=== PATIENT | male | born 1970 | race Caucasian/White ===

== ENCOUNTER 2017-04-10 04:04 | Emergency (ER) | payer BC ==
--- NOTE | 2017-04-10 04:15 | EDM.PDOC ---
ED HPI GENERAL MEDICAL PROBLEM - General Chief Complaint: Respiratory Problem Stated Complaint: CONGESTION COUGH PAIN IN LUNGS Time Seen by Provider: 04/10/17 04:20 Source of Information: Reports: Patient History Limitations: Reports: No Limitations - History of Present Illness INITIAL COMMENTS - FREE TEXT/NARRATIVE: The patient presents with fever, chills, cough, diarrhea and vomiting. This started about 5 days ago. He has a history of inhalation lung injury and he will get pneumonia easily. He will get it about every 2 years. He has no chest pain. He does have some shortness of breath. He does not smoke. Onset: Gradual Duration: Day(s): (5) Severity: Moderate Improves with: Reports: None Worsens with: Reports: None Associated Symptoms: Reports: Cough, Fever/Chills, Shortness of Breath. Denies : Headaches, Nausea/Vomiting Chest Pain Score (Numeric/FACES): 4 - Related Data Allergies Allergy/AdvReac Type Severity Reaction Status Date / Time codeine Allergy Anaphylactic Verified 04/10/17 04:15 Shock Home Meds: Home Meds Albuterol [Proventil HFA] 2 puff INH Q4H PRN #1 inhaler 04/10/17 [Rx] Azithromycin [IJD: Azithromycin] 250 mg PO DAILY #6 tab 04/10/17 [Rx] Benzonatate [Tessalon Perle] 100 mg PO TID PRN #30 capsule 04/10/17 [Rx] Testosterone Cypionate 100 mg IM ASDIRECTED 04/10/17 [History] amLODIPine Besylate [Amlodipine Besylate] 10 mg PO DAILY 04/10/17 [History] ED ROS GENERAL - Review of Systems Review Of Systems: See Below Constitutional: Reports: Fever, Chills HEENT: Reports: No Symptoms Respiratory: Reports: Shortness of Breath, Cough Cardiovascular: Reports: No Symptoms Endocrine: Reports: No Symptoms GI/Abdominal: Reports: Diarrhea, Vomiting. Denies: Abdominal Pain : Reports: No Symptoms Musculoskeletal: Reports: No Symptoms ED EXAM, GENERAL - Physical Exam Exam: See Below Exam Limited By: No Limitations General Appearance: Alert, No Apparent Distress Ears: Normal External Exam Nose: Normal Inspection Head: Atraumatic, Normocephalic Neck: Normal Inspection Respiratory/Chest: No Respiratory Distress, Decreased Breath Sounds, Wheezing ( Mild) Cardiovascular: Regular Rate, Rhythm, No Edema, No Murmur GI/Abdominal: Soft, Non-Tender, No Organomegaly, No Mass Back Exam: Normal Inspection Extremities: Normal Inspection Course - Vital Signs Last Recorded V/S: Last Vital Signs Temp 96.7 F 04/10/17 04:10 Pulse 118 H 04/10/17 04:10 Resp 16 04/10/17 04:10 BP 143/124 H 04/10/17 04:10 Pulse Ox 99 04/10/17 04:29 - Orders/Labs/Meds Orders: Active Orders 24 hr Category Date Time Status RT Aerosol Therapy [RC] ASDIRECTED Care 04/10/17 04:20 Active CXR [Chest 2V] [CR] Stat Exams 04/10/17 04:20 Taken Meds: Medications Discontinued Medications Generic Name Dose Route Start Last Admin Trade Name Freq PRN Reason Stop Dose Admin Albuterol/Ipratropium 3 ml 04/10/17 04:20 04/10/17 04:29 Duoneb 3.0-0.5 Mg/3 Ml NEB 04/10/17 04:21 3 ml ONETIME ONE Administration - Re-Assessments/Exams Free Text/Narrative Re-Assessment/Exam: 04/10/17 04:24 I will check him for influenza and get a CXR. I will also get him a duoneb. 04/10/17 05:01 His CXR looks good. His influenza is negative. I will get him on a z-ganesh, albuterol and some tessilon pearls. Departure - Departure Time of Disposition: 05:05 Disposition: Home, Self-Care 01 Condition: Good Clinical Impression: Bronchitis - Discharge Information Prescriptions: Albuterol [Proventil HFA] 2 puff INH Q4H PRN #1 inhaler PRN Reason: Shortness Of Breath Azithromycin [IJD: Azithromycin] 250 mg PO DAILY #6 tab Benzonatate [Tessalon Perle] 100 mg PO TID PRN #30 capsule PRN Reason: Cough Referrals: PCP,Not In Area [Primary Care Provider] - Forms: ED Department Discharge Additional Instructions: Take the zithromax 2 pills on day 1 and 1 pill on day 2 through 5. Use the albuterol 2 puffs every 6 hours as needed for shortness of breath. Use the tessalon pearls 1 every 8 hours as needed for cough. You may also try some robittusin. - My Orders Last 24 Hours: My Active Orders 04/10/17 04:20 RT Aerosol Therapy [RC] ASDIRECTED CXR [Chest 2V] [CR] Stat - Assessment/Plan Last 24 Hours: My Active Orders 04/10/17 04:20 RT Aerosol Therapy [RC] ASDIRECTED CXR [Chest 2V] [CR] Stat
[2017-04-10] MEDS ORDERED: Albuterol/Ipratropium 3.0-0.5 MG/3 ML Neb Soln NEB ONE (04:20)
[2017-04-10] MEDS ORDERED: Albuterol 6.7 GM Inhaler INH ONE (05:08)
--- NOTE | 2017-04-10 06:53 | CR ---
Chest: Two views of the chest were obtained. Comparison: No prior study. Heart size and mediastinum are normal. Slight increased perihilar markings are seen possibly due to mild bronchitis. No pneumonia is identified. Minimal atelectasis is seen within the lingula. Bony structures appear within normal limits for the patient's age. Impression: 1. Possible bronchitis with mild lingular atelectasis. 2. No pneumonia is seen. Diagnostic code #3
== END 2017-04-10 05:23 | disposition home or self-care (01) ==
LOC: JD.ED 04:04
DX: J40 Bronchitis, not specified as acute or chronic (principal); Z88.5 Allergy status to narcotic agent; Z79.899 Other long term (current) drug therapy
CPT/HCPCS: 71046; 87804; 94640; 94664; 99284; A9270; 99283

== ENCOUNTER 2018-05-07 10:18 | Emergency (ER) | payer BC ==
[2018-05-07] MEDS ORDERED: HYDROmorphone 1 MG/ML Syringe IVPUSH ONE ×2 (10:56→13:44)
[2018-05-07] MEDS ORDERED: Albuterol 0.083% 2.5 MG/3 ML Neb Soln NEB ONE (10:56)
[2018-05-07] MEDS ORDERED: Sodium Chloride 0.9% 10 ML Syringe FLUSH PRN (10:56)
[2018-05-07] MEDS ORDERED: Sodium Chloride 0.9% 1,000 ML IV SCH ×2 (11:00→12:15)
--- NOTE | 2018-05-07 11:50 | EDM.PDOC ---
ED HPI GENERAL MEDICAL PROBLEM - General Chief Complaint: Respiratory Problem Stated Complaint: BACK PAIN Time Seen by Provider: 05/07/18 10:39 Source of Information: Reports: Patient, RN Notes Reviewed - History of Present Illness INITIAL COMMENTS - FREE TEXT/NARRATIVE: 47-year-old male is come in by private vehicle with complaint of cough, chills, fever, severe left-sided chest pain worse with any kind of motion and coughing. He states he became ill about a week ago with cough fever chills headache muscle aching. He was seen by provider at [place] last week, he and his family all tested positive for influenza. He then was seen again on Saturday 2 days ago her continued cough, left chest pain, diagnosed with "pneumonia" He states he was given what sounds like Rocephin IM and started on Zithromax with his first dose yesterday morning. He started having mild discomfort of his left lower anterior chest through 4 days ago but became much worse Saturday evening after his evaluation. Since that time there has been severe pain with coughing, deep breathing and motion primarily left lower rib cage area. The pain in his left low chest this morning is severe, also worse with motion. He has no known history for heart disease or known other pulmonary problems. Treatments [facility]ISS[facility] STEWARD: Reports: NSAIDS Left Abdomen Pain Score (Numeric/FACES): 10 - Related Data Allergies Allergy/AdvReac Type Severity Reaction Status Date / Time codeine Allergy Anaphylactic Verified 05/07/18 10:41 Shock Home Meds: Home Meds Albuterol [Proventil HFA] 2 puff INH Q4H PRN #1 inhaler 04/10/17 [Rx] Azithromycin [IJD: Azithromycin] 250 mg PO DAILY #6 tab 04/10/17 [Rx] Testosterone Cypionate 100 mg IM ASDIRECTED 04/10/17 [History] Benzonatate 100 mg PO TID PRN 05/07/18 [History] Dextromethorphan/guaiFENesin [Mucinex DM ER 600-30 MG] 1 tab PO BID 05/07/18 [ History] Losartan/Hydrochlorothiazide [Losartan-HCTZ 100-25 MG] 1 each PO DAILY 05/07/18 [History] predniSONE [Deltasone] 20 mg PO BID 05/07/18 [History] Past Medical History Cardiovascular History: Reports: Hypertension Respiratory History: Reports: Sleep Apnea, Other (See Below) Other Respiratory History: inhalation alvarez Gastrointestinal History: Reports: None Genitourinary History: Reports: None Musculoskeletal History: Reports: None Neurological History: Reports: None Psychiatric History: Reports: None Endocrine/Metabolic History: Reports: Other (See Below) Other Endocrine/Metabolic History: 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 Hematologic History: Reports: None Immunologic History: Reports: None Oncologic (Cancer) History: Reports: None Dermatologic History: Reports: None - Infectious Disease History Infectious Disease History: Reports: Influenza - Past Surgical History Head Surgeries/Procedures: Reports: None GI Surgical History: Reports: None Male Surgical History: Reports: None Oncologic Surgical History: Reports: None Social & Family History - Family History Family Medical History: Noncontributory - Tobacco Use Smoking Status *Q: Never Smoker - Caffeine Use Caffeine Use: Reports: Coffee - Recreational Drug Use Recreational Drug Use: Yes Drug Use in Last 12 Months: No Recreational Drug Type: Reports: Marijuana/Hashish ED ROS GENERAL - Review of Systems Review Of Systems: See Below Constitutional: Reports: Fever, Chills HEENT: Reports: Rhinitis. Denies: Throat Pain Respiratory: Reports: Shortness of Breath, Pleuritic Chest Pain, Cough, Sputum Cardiovascular: Reports: Chest Pain (Scant with coughing, deep breathing and motion), Dyspnea on Exertion, Lightheadedness GI/Abdominal: Denies: Abdominal Pain, Nausea, Vomiting Musculoskeletal: Reports: Back Pain (Left back), Other (Generalized muscle achiness) Skin: Denies: Rash Neurological: Reports: Dizziness, Headache ED EXAM, GENERAL - Physical Exam Exam: See Below General Appearance: Alert, Moderate Distress Throat/Mouth: Normal Inspection Head: Atraumatic. No: Facial Swelling Neck: Normal Inspection Respiratory/Chest: Respiratory Distress, Other (Addy left lower anterior chest ). No: Rhonchi (Maura tachypnea), Wheezing Cardiovascular: Tachycardia GI/Abdominal: Soft, Non-Tender Back Exam: CVA Tenderness (L) (Mild). No: CVA Tenderness (R) Extremities: No: Pedal Edema, Leg Pain, Increased Warmth, Redness Neurological: Alert, Oriented, No Motor/Sensory Deficits Skin Exam: Warm, Dry, Diaphoretic (Mild at time of initial exam) Course - Vital Signs Last Recorded V/S: Last Vital Signs Temp 97.5 F 05/07/18 12:17 Pulse 110 H 05/07/18 12:17 Resp 16 05/07/18 12:17 BP 162/76 H 05/07/18 12:17 Pulse Ox 94 L 05/07/18 12:17 - Orders/Labs/Meds Orders: Active Orders 24 hr Category Date Time Status Peripheral IV Care [RC] . DIRECTED Care 05/07/18 10:56 Active RT Aerosol Therapy [RC] ASDIRECTED Care 05/07/18 10:56 Active CULTURE BLOOD [BC] Stat Lab 05/07/18 11:06 Received CULTURE BLOOD [BC] Stat Lab 05/07/18 11:15 Received Peripheral IV Insertion Adult [OM.PC] Stat Oth 05/07/18 10:55 Ordered Labs: Laboratory Tests 05/07/18 05/07/18 05/07/18 Range/Units 10:30 10:30 10:30 WBC 16.95 H (4.23-9.07) K/mm3 RBC 6.17 H (4.63-6.08) M/mm3 Hgb 18.6 H (13.7-17.5) gm/L Hct 56.5 H (40.1-51.0) % MCV 91.6 (79.0-92.2) fl MCH 30.1 (25.7-32.2) pg MCHC 32.9 (32.2-35.5) g/dl RDW Std Deviation 53.7 H (35.1-43.9) fL Plt Count 261 (163-337) K/mm3 MPV 10.5 (9.4-12.3) fl Neutrophils % (Manual) 83 H (40-60) % Band Neutrophils % 0 (0-10) % Lymphocytes % (Manual) 11 L (20-40) % Atypical Lymphs % 0 % Monocytes % (Manual) 5 (2-10) % Eosinophils % (Manual) 1 (0.8-7.0) % Basophils % (Manual) 0 L (0.2-1.2) Platelet Estimate Adequate RBC Morph Comment Normal D-Dimer, Quantitative (0.19-0.50) mg/L Sodium 134 L (136-145) mEq/L Potassium 3.9 (3.5-5.1) mEq/L Chloride 99 (98-107) mEq/L Carbon Dioxide 21 (21-32) mEq/L Anion Gap 17.9 H (5-15) BUN 22 H (7-18) mg/dL Creatinine 1.5 H (0.7-1.3) mg/dL Est Cr Clr Drug Dosing 75.34 mL/min Estimated GFR (MDRD) 51 (>60) mL/min BUN/Creatinine Ratio 14.7 (14-18) Glucose 135 H (74-106) mg/dL Lactic Acid (0.4-2.0) mmol/L Calcium 9.0 (8.5-10.1) mg/dL Total Bilirubin 0.9 (0.2-1.0) mg/dL AST 32 (15-37) U/L ALT 24 (16-63) U/L Alkaline Phosphatase 74 (46-116) U/L C-Reactive Protein 0.5 (<1.0) mg/dL Total Protein 8.1 (6.4-8.2) g/dl Albumin 4.2 (3.4-5.0) g/dl Globulin 3.9 gm/dL Albumin/Globulin Ratio 1.1 (1-2) 05/07/18 05/07/18 Range/Units 10:30 11:15 WBC (4.23-9.07) K/mm3 RBC (4.63-6.08) M/mm3 Hgb (13.7-17.5) gm/L Hct (40.1-51.0) % MCV (79.0-92.2) fl MCH (25.7-32.2) pg MCHC (32.2-35.5) g/dl RDW Std Deviation (35.1-43.9) fL Plt Count (163-337) K/mm3 MPV (9.4-12.3) fl Neutrophils % (Manual) (40-60) % Band Neutrophils % (0-10) % Lymphocytes % (Manual) (20-40) % Atypical Lymphs % % Monocytes % (Manual) (2-10) % Eosinophils % (Manual) (0.8-7.0) % Basophils % (Manual) (0.2-1.2) Platelet Estimate RBC Morph Comment D-Dimer, Quantitative 0.50 (0.19-0.50) mg/L Sodium (136-145) mEq/L Potassium (3.5-5.1) mEq/L Chloride (98-107) mEq/L Carbon Dioxide (21-32) mEq/L Anion Gap (5-15) BUN (7-18) mg/dL Creatinine (0.7-1.3) mg/dL Est Cr Clr Drug Dosing mL/min Estimated GFR (MDRD) (>60) mL/min BUN/Creatinine Ratio (14-18) Glucose (74-106) mg/dL Lactic Acid 3.1 H (0.4-2.0) mmol/L Calcium (8.5-10.1) mg/dL Total Bilirubin (0.2-1.0) mg/dL AST (15-37) U/L ALT (16-63) U/L Alkaline Phosphatase (46-116) U/L C-Reactive Protein (<1.0) mg/dL Total Protein (6.4-8.2) g/dl Albumin (3.4-5.0) g/dl Globulin gm/dL Albumin/Globulin Ratio (1-2) Meds: Medications Discontinued Medications Generic Name Dose Route Start Last Admin Trade Name Freq PRN Reason Stop Dose Admin Albuterol 2.5 mg 05/07/18 10:56 05/07/18 11:09 Proventil Neb Soln NEB 05/07/18 10:57 2.5 mg ONETIME ONE Administration Hydromorphone HCl 1 mg 05/07/18 10:56 05/07/18 11:02 Dilaudid IVPUSH 05/07/18 10:57 1 mg ONETIME ONE Administration Hydromorphone HCl 1 mg 05/07/18 13:44 05/07/18 14:33 Dilaudid IVPUSH 05/07/18 13:45 1 mg ONETIME ONE Administration Sodium Chloride 1,000 mls @ 999 mls/hr 05/07/18 11:00 05/07/18 11:04 Normal Saline IV 999 mls/hr ONETIME SHEYLA Administration Sodium Chloride 1,000 mls @ 999 mls/hr 05/07/18 12:15 05/07/18 12:13 Normal Saline IV 999 mls/hr ONETIME SHEYLA Administration Lorazepam 1 mg 05/07/18 13:44 05/07/18 14:33 Ativan PO 05/07/18 13:45 1 mg ONETIME ONE Administration Sodium Chloride 10 ml 05/07/18 10:56 05/07/18 11:04 Saline Flush FLUSH 10 ml ASDIRECTED PRN Administration Keep Vein Open Departure - Departure Time of Disposition: 14:55 Disposition: Home, Self-Care 01 Condition: Fair Clinical Impression: Atypical chest pain, Chest wall pain - Discharge Information Instructions: Chest Wall Pain, [id number], Nonspecific Chest Pain, Easy-to- Read Referrals: PCP,Not In Area [Primary Care Provider] - Forms: ED Department Discharge Additional Instructions: Rest, no heavy lifting, you may alternate ice and heat to area of pain for symptomatic relief, Advil or ibuprofen 800 mg up to 3 times daily for pain and inflammation, take Tylenol in between doses for mild discomfort as needed or Percocet 3-4 times daily if needed for severe pain. Do not drive or work when taking Percocet. You may also take Ativan especially at bedtime if needed for muscle relaxation to help you rest and sleep. Follow up at our [facility] medical clinic this coming Saturday 2 days from now for recheck, call [phone] to see one of our providers. Return to ED as needed if symptoms worsening in any way. - My Orders Last 24 Hours: My Active Orders 05/07/18 10:55 Peripheral IV Insertion Adult [OM.PC] Stat 05/07/18 10:56 Peripheral IV Care [RC] . DIRECTED RT Aerosol Therapy [RC] ASDIRECTED 05/07/18 11:06 CULTURE BLOOD [BC] Stat 05/07/18 11:15 CULTURE BLOOD [BC] Stat - Assessment/Plan Last 24 Hours: My Active Orders 05/07/18 10:55 Peripheral IV Insertion Adult [OM.PC] Stat 05/07/18 10:56 Peripheral IV Care [RC] . DIRECTED RT Aerosol Therapy [RC] ASDIRECTED 05/07/18 11:06 CULTURE BLOOD [BC] Stat 05/07/18 11:15 CULTURE BLOOD [BC] Stat
--- NOTE | 2018-05-07 11:52 | CR ---
Chest: Portable view of the chest was obtained. Comparison: Prior chest x-ray of 04/10/17. Heart size and mediastinum are within normal limits for portable technique. Lungs are clear with no acute parenchymal change. Bony structures are grossly intact. Impression: 1. Nothing acute is seen on portable chest x-ray. Diagnostic code #1
[2018-05-07] MEDS ORDERED: LORazepam 1 MG Tab PO ONE (13:44)
== END 2018-05-07 15:29 | disposition home or self-care (01) ==
LOC: JD.ED 10:18
DX: R07.89 Other chest pain (principal); I10 Essential (primary) hypertension; Z79.899 Other long term (current) drug therapy; Z88.5 Allergy status to narcotic agent
CPT/HCPCS: 36415; 71045; 80053; 83605; 85007; 85027; 85379; 86140; 87040; 94640; 96361; 96374; 96376; 99284; A9270; J1170; J7040

== ENCOUNTER 2018-12-02 17:59 | Emergency (ER) | payer BC ==
[2018-12-02] MEDS ORDERED: HYDROmorphone 1 MG/ML Syringe IVPUSH ONE ×3 (18:13→21:15)
[2018-12-02] MEDS ORDERED: Sodium Chloride 0.9% 10 ML Syringe FLUSH PRN (18:13)
[2018-12-02] MEDS ORDERED: Sodium Chloride 0.9% 1,000 ML IV SCH (18:15)
[2018-12-02] MEDS ORDERED: Sodium Chloride 0.9% 10 ML Syringe FLUSH ONE (18:41)
[2018-12-02] MEDS ORDERED: Iopamidol 612 MG/ML 100 ML Bottle IVPUSH ONE (18:41)
--- NOTE | 2018-12-02 18:48 | EDM.PDOC ---
ED HPI GENERAL MEDICAL PROBLEM - General Chief Complaint: Trauma Stated Complaint: FALL Time Seen by Provider: 12/02/18 18:03 Source of Information: Reports: Patient, RN Notes Reviewed - History of Present Illness INITIAL COMMENTS - FREE TEXT/NARRATIVE: 48 year old male fell, tripped on a curb, has come in per private vehicle with severe low and mid back pain and also L chest wall and upper abd pain. He has hx of large L abd wall hernia. He denies hitting his head, head or neck pain. He is having a lot of pain mid back and also L chest and L upper abd, worse with motion. Hx of large L abd wall hernia. Right Chest Pain Score (Numeric/FACES): 10 - Related Data Allergies Allergy/AdvReac Type Severity Reaction Status Date / Time codeine Allergy Anaphylactic Verified 12/02/18 18:09 Shock Home Meds: Home Meds Testosterone Cypionate 100 mg IM ASDIRECTED 04/10/17 [History] Citalopram [Citalopram HBr] 20 mg PO DAILY 12/02/18 [History] Past Medical History Cardiovascular History: Reports: Blood Clots/VTE/DVT, Hypertension Respiratory History: Reports: Asthma, Sleep Apnea, Other (See Below) Other Respiratory History: inhalation alvarez Gastrointestinal History: Reports: None Genitourinary History: Reports: None Musculoskeletal History: Reports: Other (See Below) Other Musculoskeletal History: left rib pain/surgery Neurological History: Reports: None Psychiatric History: Reports: Depression Endocrine/Metabolic History: Reports: Other (See Below) Other Endocrine/Metabolic History: 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 Hematologic History: Reports: None Immunologic History: Reports: None Oncologic (Cancer) History: Reports: None Dermatologic History: Reports: None - Infectious Disease History Infectious Disease History: Reports: Influenza - Past Surgical History Head Surgeries/Procedures: Reports: None GI Surgical History: Reports: None, Hernia, Abdominal Male Surgical History: Reports: None Oncologic Surgical History: Reports: None Social & Family History - Family History Family Medical History: Noncontributory - Tobacco Use Smoking Status *Q: Current Every Day Smoker Years of Tobacco use: 20 Packs/Tins Daily: 1 - Caffeine Use Caffeine Use: Reports: Coffee, Energy Drinks, Soda - Recreational Drug Use Recreational Drug Use: No Review of Systems - Review of Systems Review Of Systems: See Below Constitutional: Reports: No Symptoms Eyes: Reports: No Symptoms Ears: Reports: No Symptoms Nose: Reports: No Symptoms Mouth/Throat: Reports: No Symptoms Respiratory: Reports: Shortness of Breath, Pleuritic Chest Pain Cardiovascular: Reports: Chest Pain (L chest wall) GI/Abdominal: Reports: Abdominal Pain (L upper abd) Musculoskeletal: Reports: Back Pain (mid back, worse with motion). Denies: Neck Pain, Shoulder Pain, Arm Pain Skin: Reports: No Symptoms Neurological: Denies: Headache, Trouble Speaking, Weakness ED EXAM, GENERAL - Physical Exam Exam: See Below General Appearance: Alert, Anxious, Moderate Distress, Obese (186 kg, BMI 51) Eye Exam: Bilateral Eye: PERRL Ears: Normal External Exam Nose: Normal Inspection Throat/Mouth: Normal Inspection Head: Atraumatic. No: Facial Swelling, Facial Tenderness Neck: Supple, Non-Tender Respiratory/Chest: Normal Breath Sounds, Respiratory Distress (mild tachypnea). No: Rhonchi, Wheezing Cardiovascular: Tachycardia GI/Abdominal: Distended (large L upper abd wall herniation, tender L upper and L mid abd). No: Guarding, Rebound Back Exam: Paraspinal Tenderness (mid back, no visible bruising or swelling), Vertebral Tenderness (mid to lower thoracic and upper lumbar) Neurological: Alert, Oriented, No Motor/Sensory Deficits Skin Exam: Warm, Dry, Normal Color. No: Ecchymosis Course - Vital Signs Last Recorded V/S: Last Vital Signs Temp 98.0 F 12/02/18 18:07 Pulse 123 H 12/02/18 18:07 Resp 30 H 12/02/18 18:07 BP 173/103 H 12/02/18 18:07 Pulse Ox 100 12/02/18 18:07 - Orders/Labs/Meds Labs: Laboratory Tests 12/02/18 12/02/18 Range/Units 18:15 18:15 WBC 8.32 (4.23-9.07) K/mm3 RBC 5.88 (4.63-6.08) M/mm3 Hgb 17.5 (13.7-17.5) gm/dl Hct 51.8 H (40.1-51.0) % MCV 88.1 D (79.0-92.2) fl MCH 29.8 (25.7-32.2) pg MCHC 33.8 (32.2-35.5) g/dl RDW Std Deviation 54.5 H (35.1-43.9) fL Plt Count 222 (163-337) K/mm3 MPV 10.3 (9.4-12.3) fl Neut % (Auto) 52.2 (34.0-67.9) % Lymph % (Auto) 34.1 (21.8-53.1) % Lane % (Auto) 8.1 (5.3-12.2) % Eos % (Auto) 4.4 (0.8-7.0) Baso % (Auto) 1.2 (0.1-1.2) % Neut # (Auto) 4.34 (1.78-5.38) K/mm3 Lymph # (Auto) 2.84 (1.32-3.57) K/mm3 Lane # (Auto) 0.67 (0.30-0.82) K/mm3 Eos # (Auto) 0.37 (0.04-0.54) K/mm3 Baso # (Auto) 0.10 H (0.01-0.08) K/mm3 Manual Slide Review Normal smear Sodium 137 (136-145) mEq/L Potassium 4.1 (3.5-5.1) mEq/L Chloride 103 (98-107) mEq/L Carbon Dioxide 24 (21-32) mEq/L Anion Gap 14.1 (5-15) BUN 15 (7-18) mg/dL Creatinine 1.3 (0.7-1.3) mg/dL Est Cr Clr Drug Dosing 84.86 mL/min Estimated GFR (MDRD) 59 (>60) mL/min BUN/Creatinine Ratio 11.5 L (14-18) Glucose 144 H (74-106) mg/dL Calcium 9.1 (8.5-10.1) mg/dL Total Bilirubin 0.3 (0.2-1.0) mg/dL AST 22 (15-37) U/L ALT 14 L (16-63) U/L Alkaline Phosphatase 88 (46-116) U/L Total Protein 7.3 (6.4-8.2) g/dl Albumin 3.3 L (3.4-5.0) g/dl Globulin 4.0 gm/dL Albumin/Globulin Ratio 0.8 L (1-2) Meds: Medications Discontinued Medications Generic Name Dose Route Start Last Admin Trade Name Freq PRN Reason Stop Dose Admin Hydromorphone HCl 1 mg 12/02/18 18:13 12/02/18 18:19 Dilaudid IVPUSH 12/02/18 18:14 1 mg ONETIME ONE Administration Hydromorphone HCl 1 mg 12/02/18 19:15 12/02/18 19:20 Dilaudid IVPUSH 12/02/18 19:16 1 mg ONETIME ONE Administration Hydromorphone HCl 1 mg 12/02/18 21:15 12/02/18 21:21 Dilaudid IVPUSH 12/02/18 21:16 1 mg ONETIME ONE Administration Sodium Chloride 1,000 mls @ 999 mls/hr 12/02/18 18:15 12/02/18 18:19 Normal Saline IV 999 mls/hr ONETIME SHEYLA Administration Iopamidol 100 ml 12/02/18 18:41 Isovue-300 (61%) IVPUSH 12/02/18 18:42 ONETIME ONE Iopamidol 50 ml 12/02/18 18:56 Isovue-300 (61%) IVPUSH 12/02/18 18:57 ONETIME ONE Lorazepam 1 mg 12/02/18 19:18 12/02/18 19:28 Ativan IVPUSH 12/02/18 19:19 1 mg ONETIME ONE Administration Lorazepam 1 mg 12/02/18 20:05 12/02/18 20:12 Ativan IVPUSH 12/02/18 20:06 1 mg ONETIME ONE Administration Sodium Chloride 10 ml 12/02/18 18:13 12/02/18 18:19 Saline Flush FLUSH 10 ml ASDIRECTED PRN Administration Keep Vein Open Sodium Chloride 10 ml 12/02/18 18:41 Saline Flush FLUSH 12/02/18 18:42 ONETIME ONE - Re-Assessments/Exams Free Text/Narrative Re-Assessment/Exam: 12/04/18 12:15 CT chest, abd normal, no acute findings. CT thoracic and lumbar spine no acute findings. Pt much more comfortable after multiple doses dilaudid and ativan. Labs were good. Discharge instr. as documented. Departure - Departure Time of Disposition: 21:29 Disposition: Home, Self-Care 01 Condition: Fair Clinical Impression: Fall, Strain, back, Strain of chest wall - Discharge Information Instructions: Low Back Strain, RICE for Routine Care of Injuries Referrals: PCP,Not In Area [Primary Care Provider] - Forms: ED Department Discharge Additional Instructions: rest, no heavy lifting, alternate ice and heat as needed, percocet 1 tab q 6 hr as needed for severe pain, ativan 1 tab q 8 to 12 hour as needed for muscle and nerve relaxation. Follow up with your clinic provider as needed. Return to ED as needed if symptoms worsening in any way.
[2018-12-02] MEDS ORDERED: Iopamidol 612 MG/ML 50 ML SDV IVPUSH ONE (18:56)
[2018-12-02] MEDS ORDERED: LORazepam 2 MG/ML SDV IVPUSH ONE ×2 (19:18→20:05)
--- NOTE | 2018-12-02 19:39 | CT ---
CT thoracic spine Technique: Multiple axial sections through the thoracic spine were obtained. Findings: Minimal scattered anterior endplate osteophytes are seen as well as minimal scattered disc space narrowing. Minimal scoliosis is noted. Vertebral body heights are maintained. Deformity of the proximal sixth rib on the right side is seen compatible with old healed fracture deformity. Thoracic spine shows no acute fracture line. No abnormal subluxation is seen. No bony central canal stenosis is seen. No discrete neural foraminal stenosis is noted. Impression: 1. Mild degenerative change. 2. No acute fracture or acute subluxation is seen. 3. Old healed rib fracture as noted above. Diagnostic code #2
--- NOTE | 2018-12-02 19:41 | CT ---
CT lumbar spine Technique: Multiple axial sections through the lumbar spine were obtained. Reconstructed sagittal and coronal images were reviewed. Comparison: No previous lumbar spine imaging. Findings: Mild disc space narrowing is noted at L1-L2 with anterior osteophytes. Smaller anterior osteophytes are noted throughout other levels of the thoracic spine. Posterior osteophytes are noted at L1-L2. There is vacuum phenomena within the apophyseal joints at L4-L5 compatible with degenerative change. No discrete fracture is seen. No abnormal subluxation is seen. Vacuum phenomena is noted within the sacroiliac joints. Impression: 1. Mild degenerative change. 2. No acute fracture or abnormal subluxation is seen. Diagnostic code #2
--- NOTE | 2018-12-02 19:50 | CT ---
CT chest Technique: Multiple axial sections through the chest were obtained. Intravenous contrast was utilized. Comparison: Previous chest x-ray 05/07/18. Findings: Thoracic aorta shows no aneurysm. No mediastinal fluid or mass is seen. Hilar regions are unremarkable. Single slightly prominent lymph node is noted within the left axillary region measuring 1.8 cm which is believed to be incidental as this is the only enlarged lymph node being seen. Both lungs show no acute parenchymal change. Slight extrapleural fat is noted posteriorly within the left lung base. Bone window settings were reviewed which shows no acute rib fracture. Impression: 1. Findings believed to be incidental as noted above. Nothing acute is seen on CT study of the chest. Diagnostic code #2 CT abdomen and pelvis Technique: Multiple axial sections were obtained from above the dome of the diaphragm inferiorly through the pubic symphysis. Intravenous contrast was utilized. No oral contrast was given. Comparison: No prior abdominal imaging. Findings: Fatty infiltration is seen within the liver. Nothing acute is seen within the liver. Spleen appears within normal limits. Adrenal glands show no nodule. Gallbladder contains no calcified gallstones. Pancreas is within normal limits. Aorta shows no aneurysm. no retroperitoneal adenopathy or mesenteric abnormalities are seen. Appendix is not definitely visualized. No pelvic mass or adenopathy is seen. No free fluid or inflammatory change is seen within the abdomen or pelvis. Bone window settings shows no discrete fracture within the pelvis or within the hips. Impression: 1. Fatty infiltration within the liver. Nothing acute is appreciated on CT study of the abdomen and pelvis. Diagnostic code #2
== END 2018-12-02 21:46 | disposition home or self-care (01) ==
LOC: JD.ED 17:59
DX: S39.012A Strain of muscle, fascia and tendon of lower back, initial encounter (principal); S29.011A Strain of muscle and tendon of front wall of thorax, initial encounter; S29.012A Strain of muscle and tendon of back wall of thorax, initial encounter; I10 Essential (primary) hypertension; F32.9 Major depressive disorder, single episode, unspecified; F17.210 Nicotine dependence, cigarettes, uncomplicated; E66.9 Obesity, unspecified; Z68.43 Body mass index [BMI] 50.0-59.9, adult; Z79.899 Other long term (current) drug therapy; Z88.5 Allergy status to narcotic agent; W01.0XXA Fall on same level from slipping, tripping and stumbling without subsequent striking against object, initial encounter; Y92.039 Unspecified place in apartment as the place of occurrence of the external cause
CPT/HCPCS: 36415; 71260; 72128; 72131; 74177; 80053; 85025; 96361; 96374; 96375; 96376; 99284; J1170; J2060; J7040